=== PATIENT | female | born 1945 | race Caucasian/White ===

== ENCOUNTER 2017-12-25 13:19 | Outpatient (CLI) | payer MEDICARE ==
--- NOTE | 2017-12-25 16:10 | MRI ---
MRI CERVICAL SPINE: History: Cervical radiculopathy, R51 and N54.12 Technique: Multiplanar, multisequence noncontrast enhanced MRI images were obtained of the cervical s pine. FINDINGS: Images demonstrate the spinal cord to be unremarkable. No evidence of cord masses or lesions seen. There is loss of the normal lordotic curvature of the cervical spine. C1-2: Unremarkable. C2-3: There is a mild broad based disc bulge resulting in minimal but no significant degree of centra l stenosis. The neural foramen are patent. C3-4: There is disc desiccation. There is a broad based central disc bulge resulting in mild but not significant thecal sac compression. The neural foramen are patent. C4-5: Disc desiccation is seen. There is a broad based disc osteophyte complex centrally compressing the thecal sac resulting in a moderate degree of central spinal stenosis. There is a moderate to liz re right and mild left sided C4-5 neuroforaminal narrowing due to uncal vertebral osteophyte hypertro phy. C5-6: There is disc space height loss. There is a broad based disc osteophyte complex extending into the right C5-6 paracentral region compressing the thecal sac and the right C5-6 spinal cord deforming the cord at this level. The osteophytes extend into the right C5-6 neural foramen resulting in sever e right C5-6 neural foraminal narrowing concerning for a right C6 nerve root compression. There is a moderate left C5-6 neural foraminal narrowing due to uncal vertebral osteophyte hypertrophy. C6-7: Disc desiccation is seen. There is a broad based disc osteophyte complex centrally compressing the thecal sac resulting in mild compression for the thecal sac. There is moderate to severe bilatera l C6-7 neural foraminal narrowing due to uncal vertebral osteophyte hypertrophy. C7-T1: Unremarkable. IMPRESSION: 1. Extensive mid and lower cervical disc osteophyte complex with multilevel central and neural forami nal narrowing as above. The most significant degrees of neural foraminal narrowing involves the right C4-5, right C5-6, and right and left C6-7 neural foramen. POS: [facility]
--- NOTE | 2017-12-25 16:13 | RAD ---
CERVICAL SPINE RADIOGRAPHS COMPLETE WITH OBLIQUE FLEXION AND EXTENSION: 12/25/17 COMPARISON: Cervical spine MRI same day. FINDINGS: No acute fracture or malalignment. Mild reversal of the normal cervical lordosis and straightening of the cervical spine. Moderate degenerative disc space height loss at C5-6 and C6-7 with uncinate proc ess hypertrophy and disc osteophyte complexes. No listhesis. No significant abnormal translation with flexion or extension. IMPRESSION: No significant listhesis or translation with flexion or extension. POS: [facility]
== END 2017-12-25 13:20 | disposition home or self-care (01) ==
LOC: SCSMRI 13:19
PROVIDERS: ATTEND Anesthesiology Pain Medicine
DX: M54.12 Radiculopathy, cervical region (principal); R51 Headache; M48.02 Spinal stenosis, cervical region; M99.81 Other biomechanical lesions of cervical region; M25.78 Osteophyte, vertebrae
CPT/HCPCS: 72052; 72141

== ENCOUNTER 2019-01-15 15:15 | Outpatient (CLI) | payer MEDICARE ==
--- NOTE | 2019-01-15 16:27 | RAD ---
XR Chest Pa Lat STANDARD HISTORY: Preoperative evaluation COMPARISON: None FINDINGS: The heart size is normal. The aorta is tortuous. A calcified granuloma is seen in the left lung base The lungs are well expanded without focal areas of consolidation, pneumothorax or pleural effusions. IMPRESSION: No radiographic evidence of acute cardiopulmonary process.
[2019-01-15 16:36] LABS: #Basophils 0.1 thou/uL (0.0-0.2); #Eosinphils 0.2 thou/uL (0.0-0.7); #Lymphocytes 3.5 thou/uL (1.20-3.40); #Monocytes 0.6 thou/uL (0.11-0.59); #Neutrophils 4.2 thou/uL (1.40-6.50); %Eosinophils 2.7 % (0.0-10.0); %Lymphocytes 40.7 % (21.0-51.0); %Monocytes 7.3 % (0.0-10.0); %Neutrophils 48.3 % (42.0-75.0); Hemoglobin 12.9 g/dL (12.0-16.0); Mean Corpuscular HGB CONC 33.9 g/dL (32.0-36.0); Mean Corpuscular Hemoglobin 31.7 pg (27.0-31.0); Mean Corpuscular Volume 93.5 fL (78.0-98.0); Mean Platelet Volume 8.3 fL (7.4-10.4); Platelet Count 260 thou/uL (130-400); RBC Distribution Width 12.3 % (11.5-14.5); Red Blood Cell (RBC) Count 4.06 mill/uL (4.20-5.40); White Blood Cell (WBC) Count 8.6 thou/uL (4.8-10.8)
[2019-01-15 16:50] LABS: Anion Gap 11 mmol/L (10-20); BUN (Urea Nitrogen) 15 mg/dL (9.8-20.1); Calc. Creatinine Clearance 0 mL/min (70-130); Carbon Dioxide 30 mmol/L (23-31); Chloride 99 mmol/L (98-107); Estimated GFR-MDRD 43; Glucose 148 mg/dL (83-110); Potassium 3.7 mmol/L (3.5-5.1); Sodium 136 mmol/L (136-145)
== END 2019-01-15 15:16 | disposition home or self-care (01) ==
LOC: LABBT 15:15
PROVIDERS: ATTEND Specialist
DX: Z01.818 Encounter for other preprocedural examination (principal); C50.911 Malignant neoplasm of unspecified site of right female breast
CPT/HCPCS: 71046; 80048; 85025; 93005; 93010

== ENCOUNTER 2019-01-23 07:00 | Day surgery (SDC) | payer MEDICARE ==
[2019-01-15 15:54] VITALS: BMI 36.3
--- NOTE | 2019-01-23 08:52 | NM ---
RIGHTBREAST LYMPHOSCINTIGRAPHY: INDICATION: Malignant neoplasm of the right breast Radial pharmaceutical: 0.405 millicuries of technetium 99m filtered sulfur colloid TECHNIQUE: The rightnipple areolar complex was cleansed with alcohol. The radiotracer was injected wi thin the subcutaneous tissues surrounding the nipple areolar complex in 4 separate aliquots. The patient tolerated the injection without difficulty. FINDINGS: There is radiotracer seen surrounding the rightnipple areolar complex. There is radiotrace r accumulation within the first draining lymph node of the anterior rightaxilla. 3 separate lymph nodes are seen in the anterior right axilla on the lateral projection. IMPRESSION: Successful right breast lymphoscintigraphy.
[2019-01-23] MEDS ORDERED: Ondansetron PF 4 MG/2 ML Vial ONE (09:46)
[2019-01-23] MEDS ORDERED: PROPOFOL 200 MG/20 ML VIAL ONE (09:46)
[2019-01-23] MEDS ORDERED: Lidocaine 1% w/Epinephrine 1:100K 20 ML VIAL ONE ×2 (10:47→11:38)
[2019-01-23] MEDS ORDERED: Bupivacaine PF 0.5% 30 ML VIAL ONE (10:47)
[2019-01-23] MEDS ORDERED: Isosulfan Blue 50 MG/5 ML VIAL ONE (10:47)
[2019-01-23] MEDS ORDERED: Bupivacaine 0.25% HCL 30 ML VIAL ONE (10:48)
[2019-01-23] MEDS ORDERED: Ketorolac Tromethamine 30 MG/ML VIAL ONE (11:05)
[2019-01-23] MEDS ORDERED: PHENYLEPHRINE-NS 100 MCG/ML 10 ML SYRINGE ONE (11:17)
[2019-01-23] MEDS ORDERED: Fentanyl 100 MCG/2 ML VIAL ONE (11:32)
[2019-01-23] MEDS ORDERED: Midazolam HCl 2 mg/2 ml Vial ONE (11:32)
--- NOTE | 2019-01-24 12:50 | OP ---
DATE OF PROCEDURE: 01/23/2019 PREOPERATIVE DIAGNOSIS: Right breast cancer. POSTOPERATIVE DIAGNOSIS: Right breast cancer. PROCEDURES PERFORMED: Right sentinel lymph node mapping, right axillary sentinel lymph node biopsy (2 lymph nodes removed), right breast ultrasound-guided needle localization, right breast needle localized lumpectomy. ANESTHESIA: General endotracheal. INDICATIONS: The patient is a 73-year-old white female. She has biopsy-proven right breast cancer approximately at the 7 o'clock radian of the right breast. After discussing options with her, she has elected to proceed with breast conservation surgery and presents for lumpectomy and sentinel lymph node biopsy. DESCRIPTION OF PROCEDURE: Informed consent was obtained. The patient was taken to the operating room, where general endotracheal anesthesia was obtained with the patient in supine position. The right breast was infiltrated with 3 mL of Lymphazurin in the periareolar subdermal lymphatics and this area was massaged for 5 minutes. The right breast and axilla were prepped with ChloraPrep and draped in sterile fashion. Attention was turned first to the axilla. A transverse low axillary incision was created and dissection carried through skin and subcutaneous tissue. Neoprobe was used to identify areas of maximum radio intensity. I was able to identify 2 separate lymph nodes that were heavily radioactive. Each of these also had blue dye and blue lymphatics entering them. These were each dissected circumferentially and all lymphatics were divided between clamps and 2-0 silk tie. After removing these 2 lymph nodes, one of which had a count over 1000 and the other one had counts of over 300. There were no other areas of radioactivity within the axilla that exceeded 20. I did not see any other blue lymphatics were palpable. The area was irrigated with saline. Meticulous hemostasis was assured. The wound was closed in layers with 3-0 and 4-0 Monocryl. An additional local anesthetic was infiltrated during closure. Attention was then turned to the breast. Ultrasound was utilized to identify the area of the malignancy at about the 7 even o'clock radian of the right breast in the lower outer quadrant. The location of the malignancy was marked in a grid-type fashion on the skin. A localizing needle was then placed in a superior to inferior fashion through the malignancy. A radial incision was then created encompassing the localizing needle. Dissection was carried through skin and subcutaneous tissue. Flaps were raised laterally and medially and behind the needle in a superior fashion. A wide core of tissue was then obtained extending inferiorly around the needle and just about down to the pectoral fascia. This specimen was removed intact. It was tagged for orientation with sutures and submitted for specimen mammography. This revealed the biopsy clip and the malignancy be present within the specimen. The wound was inspected and there was found to be no other area of visible or palpable abnormality. Meticulous hemostasis was obtained. The wound was closed in layers with 3-0 and 4-0 Monocryl. An additional local anesthetic was infiltrated during closure. Dermabond was placed external to both incisions. There were no complications. Blood loss was negligible. The patient tolerated the procedure well and was taken to recovery room in stable condition. Job ID: [id number]
== END 2019-01-23 15:25 | disposition home or self-care (01) ==
LOC: SDC 07:00
PROVIDERS: ATTEND Specialist
PROC: 0HBT0ZZ Excision of Right Breast, Open Approach (ICD-10-PCS; principal; 2019-01-23)
PROC: 07B50ZX Excision of Right Axillary Lymphatic, Open Approach, Diagnostic (ICD-10-PCS; 2019-01-23)
DX: C50.511 Malignant neoplasm of lower-outer quadrant of right female breast (principal); E11.9 Type 2 diabetes mellitus without complications; E78.5 Hyperlipidemia, unspecified; I10 Essential (primary) hypertension; K21.9 Gastro-esophageal reflux disease without esophagitis; Z17.0 Estrogen receptor positive status [ER+]; Z79.84 Long term (current) use of oral hypoglycemic drugs; Z79.899 Other long term (current) drug therapy; Z88.1 Allergy status to other antibiotic agents; Z88.6 Allergy status to analgesic agent; Z91.048 Other nonmedicinal substance allergy status
CPT/HCPCS: 19301; 38525; 76098; 78195; A9541; Q9968; 88307; 88342; J0131; J0690; J1885; J2250; J2405; J2704; J3010; S0020

== ENCOUNTER 2019-10-01 09:58 | Inpatient (IN) | payer MEDICARE ==
[2019-10-01] MEDS ORDERED: Acetaminophen 650 MG Suppository PR PRN (12:07)
[2019-10-01] MEDS ORDERED: Ondansetron PF 4 MG/2 ML Vial IVP PRN (12:07)
[2019-10-01] MEDS ORDERED: Acetaminophen 325 MG TAB PO PRN (12:07)
[2019-10-01] MEDS ORDERED: Ondansetron ODT 4 MG TAB PO PRN (12:07)
[2019-10-01] MEDS ORDERED: Dextrose 50% Abboject 50 ML SYRINGE SLOW IVP PRN (15:40)
[2019-10-01] MEDS ORDERED: HumaLOG 300 UNITS/3 ML VIAL SC PRN ×2 (15:40)
[2019-10-01] MEDS ORDERED: Dextrose 5% in Water 1,000 ML IV PRN (15:40)
--- NOTE | 2019-10-01 15:41 | PDOC.FPRHP ---
- History of Present Illness Chief Complaint: syncope History of Present Illness: This is a 73yo F who is a transfer from [facility] - she was admitted on 09/29 for syncope 2/2 severe . The patient was walking to a friends house on 09/28 when she became overheated, lightheaded and had 2 episodes of vomiting enroute. Once she got to the house she had a syncopal episode of unknown duration. When she woke up she had no chest pain, SOB, was not confused or weak. The patient was admitted to telemetry for further work up. She was found to have severe on echo. On evaluation here, the patient was resting comfortably in bed. She reports she had her cath done this morning and it went well. She denies any chest pain, palpitations, NVD, recurrent syncope. She does endorse some anxiety and desire to "get the procedure over with." ED Course: transferred from [facility] - see HPI - Allergies/Adverse Reactions Allergies Allergy/AdvReac Type Severity Reaction Status Date / Time adhesive Allergy Verified 10/01/19 13:36 carisoprodol [From Soma] Allergy Verified 10/01/19 13:36 levofloxacin [From Levaquin] Allergy Verified 10/01/19 13:36 - Home Medications Medication Instructions Recorded Confirmed Type Calcium Carbonate/Vitamin D3 1 tab PO BID 01/15/19 10/01/19 History [Calcium 600 + Vitamin D] Lisinopril/Hydrochlorothiazide 1 tab PO DAILY 01/15/19 10/01/19 History [Lisinopril-Hctz 20-25 mg Tab] Multivitamin [Multivitamins] 1 cap PO DAILY 01/15/19 10/01/19 History Simvastatin [Zocor] 1 tab PO HS 01/15/19 10/01/19 History metFORMIN HCl [Metformin HCl] 0.5 tab PO HS 01/15/19 10/01/19 History Anastrozole 1 tab PO HS 10/01/19 10/01/19 History Aspirin 1 tab PO DAILY 10/01/19 10/01/19 History Inulin [Fiber Gummies] 2 tab PO DAILY 10/01/19 10/01/19 History - History PMH: DM2, HTN, GERD, R breast cancer s/p surgery in Jan 2019 with axilllary node dissection and post radiation; , HLD PSH: cholecystectomy, appendectomy, right total knee arthroplast, tonsillectomy , b/l tubal ligation, cataract surgery, foot/ankle surgery FH: Father - of HF at age 76, Mother - of stroke age 74, AL at age 44 Social hx: lives in [place], no hx of tobacco, alcohol or drug use - Review of Systems General: denies: fever/chills, weight/appetite/sleep changes, night sweats, fatigue Eyes: denies: vision changes ENT: denies: nasal congestion, rhinorrhea Respiratory: denies: cough, congestion, shortness of breath Cardiovascular: denies: chest pain, palpitation, edema Gastrointestinal: denies: nausea, vomiting, diarrhea, constipation, abdominal pain Genitourinary: denies: dysuria Musculoskeletal: denies: pain, tenderness, swelling Neurological: denies: syncope, weakness Psychological: reports: anxiety - Vital signs 97.1F, HR 79, RR 18, BP 108.66, 98% RA, 94kg - Physical Exam Constitutional: NAD, awake, alert and oriented, well developed HEENT: normocephalic and atraumatic, PERRLA, EOMI, no scleral icterus, grossly normal vision, grossly normal hearing, MMM Neck: supple, FROM, trachea midline Chest: no-tender to palpation, no lesions -Heart: systolic murmur heard of the right sternal border radiating to the L; no PMI Lungs: CTAB, no respiratory distress, good air movement, no rales/rhonchi, no wheezing Abdomen: soft Musculoskeletal: normal structure, normal tone, ROM grossly normal Neurological: no focal deficit Skin: no rash/lesions, good turgor, capillary refill <2 seconds Heme/Lymphatic: no unusual bruising or bleeding Psychiatric: normal mood and affect (mildly anxious on exam) FMR H&P: A/P - Plan Syncope 2/2 Severe aortic stenosis s/p Echo showing: EF 55-60%, LVH, mildly dilated LA, severe - mean gradient across the valve of 44mmHg and valve area 0.8cm2. Seen on cath as well. EKG showing LBBB. - Trop max 0.100 - CV surg consulted here. Plan for CABG. 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 - Plan for single vessel bypass with Dr. Belcher. CV surg consulted, appreciate recs. - hold ASA for CABG and low dose BB SANNA Bun/Cr: 1.14 - Cr downtrending, will continue to monitor. PO hydrate. HTN - Controlled on ACEI, continue to monitor - PRNs available HLD LDL 59, Total 150, TG 209. ASCVD 36.5%. - Continue atorvastatin 40mg qHS DM2 A1c 5.9 in 12/2018 - SS, continue home meds. - A1c pending Of note - COVID neg on 09/29. Code: FULL PPx: holding for CABG PCP: Nora Dispo: admit to tele, inpatient. Clinical course pending surgery with CV surg- Dr. Taylor. Case discussed with Dr. Osborn
[2019-10-01] MEDS ORDERED: hydrALAZINE 20 MG/ML VIAL SLOW IVP PRN (15:43)
[2019-10-01] MEDS ORDERED: Diazepam 5 MG TAB PO PRN (17:34)
[2019-10-01] MEDS ORDERED: Communication Order-Pharmacy FS SCH (17:34)
[2019-10-01] MEDS ORDERED: Nitroglycerin 0.4 MG TAB (25 Tab Bottle) SL PRN (18:14)
--- NOTE | 2019-10-01 19:16 | ULT ---
BILATERAL CAROTID DUPLEX ULTRASOUND: HISTORY: Carotid bruit TECHNIQUE: Grayscale, color-flow and spectral Doppler ultrasound imaging of the extracranial carotid artery syst ems and vertebral arteries was performed bilaterally. FINDINGS: No large amount of echogenic plaque is seen involving the common carotid or internal carotid arteries . Small focus of calcified and noncalcified plaque in the right carotid bifurcation/proximal right carotid artery. The peak systolic velocity in the right ICA measures 59.2 cm/s. The peak systolic velocity in the ri ght CCA measures 90.6 cm/s. The peak systolic velocity in the left ICA measures 73.3 cm/s. The peak systolic velocity in the l eft CCA measures 68.4 cm/s. The right IC/CC ration is0.7. The left IC/CC ratio is 1.1. Vertebral flow: antegrade, bilaterally. . IMPRESSION: No sonographic evidence of hemodynamically significant stenosis in either carotid artery
--- NOTE | 2019-10-01 21:54 | CON ---
DATE OF CONSULTATION: HISTORY OF PRESENT ILLNESS: Ms. Valenzuela is a 73-year-old woman, who was transferred from the [facility] today. She presented on 08/29 with history of syncope while walking to her niece's house. Her niece found her passed out on the porch of her house. There were reports of attempted resuscitation, but the patient eventually woke up and ambulance was called to transport her to the hospital. Since being at the [facility], she has had an echocardiogram performed, which showed an ejection fraction of 55% to 60%. Her peak aortic velocity was 419 with a [id number]-[id number]-[id number] ratio of 70 and a mean of 44, aortic valve area 0.8. Cardiac catheterization performed today shows a normal left system. 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 The patient has no known history of coronary artery disease or aortic stenosis. She has never had syncope before this. She has no history of arrhythmia or congestive heart failure. Currently, she is resting comfortably post catheterization via right radial artery without complaint. PAST MEDICAL HISTORY: 1. Type 2 diabetes mellitus. 2. Hypertension. 3. Dyslipidemia. 4. GERD. 5. History of right breast cancer, status post lumpectomy, sentinel node dissection, and right chest wall radiation. PAST SURGICAL HISTORY: 1. Cholecystectomy. 2. Appendectomy. 3. Right total knee replacement. 4. Left total ankle replacement. 5. Tonsillectomy. 6. BTL. 7. Right breast lumpectomy with axillary sentinel node dissection. SOCIAL HISTORY: She lives in [place]. She does not use alcohol, tobacco, or other drugs. REVIEW OF SYSTEMS: A 10-point review of systems is performed and is negative except as above. PHYSICAL EXAMINATION: GENERAL: This is a well-developed, well-nourished, moderately obese woman, resting comfortably on the telemetry floor. VITAL SIGNS: Her height is 5 feet and 2 inches, weight is 208 pounds, BSA is 2.03. Temperature is 98.4, pulse is 98 and regular, and blood pressure is 140/64. EKG shows a narrow complex QRS with sinus rhythm. HEENT: Sclerae are nonicteric. Pupils are equal and round bilaterally. Dentition is good. NECK: Supple with no adenopathy. She has bilateral carotid bruits. CHEST: Clear bilaterally. HEART: Rhythm is regular. There is a harsh systolic ejection murmur heard throughout the precordium. ABDOMEN: Obese, soft, and nontender. There are no masses. EXTREMITIES: There is no edema. She has palpable carotid, radial, and femoral pulses bilaterally. Dorsalis pedis and posterior tibial pulses are dopplerable bilaterally. VENOUS: She has no venous varicosities or venous stasis change. She has no history of venous ablation. LABORATORY DATA: Of note, her hemoglobin is 11.7, platelet count is 237,000. Potassium is 3.6, creatinine is 1.14. PT/INR is 1.0. Hemoglobin A1c is pending. Chest x-ray shows a tortuous course of the intrathoracic aorta and no dominant lung mass. ASSESSMENT AND PLAN: This is a very pleasant 73-year-old woman, who has severe aortic stenosis and single-vessel coronary artery disease. I discussed bypass to her distal right coronary artery with a vein graft and aortic valve replacement with bioprosthetic valve. Risks, benefits, and options have been outlined with she and her son. There was some confusion over bypass followed by TAVR in [place]. This really does not make good medical as we will have her in the OR with her chest opened and in a situation where aortic valve replacement at that setting would be certainly more prudent than waiting for a TAVR down the road. Plan is for surgery on Sunday. Job ID: [id number]
[2019-10-01] MEDS: Atorvastatin Calcium 40 MG TAB PO SCH (22:05)
--- NOTE | 2019-10-01 22:13 | HP ---
I have examined the patient and discussed the case with Dr. Bessy Caldera. HISTORY OF PRESENT ILLNESS: Briefly, Ms. Valenzuela is a pleasant white female patient, admitted ostensibly for syncope. She states that over the last month or so, she has noticed increased breathlessness particularly with exertion. She has been attributing this to the heat, which has been excessive even by [place] standards. On September 28, while visiting relatives, she had a syncopal episode, which precipitated an ambulance ride to the [facility]. She was noted there to have a heart murmur and subsequent workup revealed coronary artery disease and critical aortic stenosis. She has been transferred here for cardiovascular services. She has an at least 10 year history of type 2 diabetes. She also has a history of hypertension, breast cancer, and hyperlipidemia. PHYSICAL EXAMINATION: GENERAL: She is awake, alert, oriented, pleasant, in no distress. She is not having any breathlessness or chest discomfort at this time. VITAL SIGNS: Stable. EAR, NOSE, AND THROAT: Moist mucous membranes. No erythema or exudate. NECK: Supple. CARDIAC: Heart rhythm is regular. There is an S4 gallop. She has a grade 3 to 4/6 systolic murmur with some radiation to the neck. LUNGS: Clear without rales or wheezes. ABDOMEN: Obese, but flat, soft. No guarding, rebound, or rigidity. EXTREMITIES: No edema. NEUROLOGIC: No focal deficits. LABORATORY DATA: Pending. EKG shows a left bundle-branch block. ASSESSMENT: 1. Critical aortic stenosis. 2. Coronary artery disease. 3. Type 2 diabetes. 4. Hypertension. 5. Hyperlipidemia. PLAN: We will follow the patient for her medical issues along with the cardiovascular surgeon. It is anticipated she will have bypass surgery here at [facility] probably tomorrow with later transfer to another facility for aortic valve replacement. Job ID: [id number]
[2019-10-02 04:27] LABS: Anion Gap 12 mmol/L (10-20); BUN (Urea Nitrogen) 14 mg/dL (9.8-20.1); Calc. Creatinine Clearance 75 mL/min (70-130); Calcium 8.5 mg/dL (7.8-10.44); Carbon Dioxide 22 mmol/L (23-31); Chloride 105 mmol/L (98-107); Estimated GFR-MDRD 55; Glucose 96 mg/dL (83-110); Potassium 3.8 mmol/L (3.5-5.1); Sodium 135 mmol/L (136-145)
[2019-10-02 04:31] LABS: Eosinophils 2 % (0-10); Hemoglobin 11.4 g/dL (12.0-16.0); Lymphocytes 38 % (21-51); MDiff Complete? YES; Mean Corpuscular HGB CONC 33.3 g/dL (32.0-36.0); Mean Corpuscular Hemoglobin 31.6 pg (27.0-31.0); Mean Corpuscular Volume 94.8 fL (78.0-98.0); Mean Platelet Volume 9.1 fL (7.4-10.4); Monocytes 4 % (0-10); Neutrophil 56 % (42-75); Platelet Count 198 thou/uL (130-400); Platelet Morphology Comment Appears Adequate; RBC Distribution Width 12.6 % (11.5-14.5); Red Blood Cell (RBC) Count 3.63 mill/uL (4.20-5.40); White Blood Cell (WBC) Count 7.8 thou/uL (4.8-10.8)
--- NOTE | 2019-10-02 06:08 | PDOC.FM ---
- Subjective Subjective: Patient complains of a headache related to the bright overhead lights. She denies lightheadedness and dizziness, both when sitting and when changing positions. She denies chest pain, SOB, abdominal pain and edema. - Objective MAR Reviewed: Yes Vital Signs & Weight: Vital Signs (12 hours) Temp Pulse Resp BP Pulse Ox 10/02/19 04:15 98.1 F 77 20 112/56 L 98 10/01/19 21:52 98.0 F 82 18 127/61 96 Weight Weight 94.211 kg I&O: 09/30/19 10/01/19 10/02/19 06:59 06:59 06:59 Intake Total 118 Balance 118 Result Diagrams: 10/02/19 03:23 10/02/19 03:23 Phys Exam - Physical Examination Constitutional: NAD HEENT: moist MMs, sclera anicteric Neck: supple, full ROM Respiratory: no wheezing, clear to auscultation bilateral Cardiovascular: RRR Systolic ejection murmur with rads to carotids bilaterally Gastrointestinal: soft, positive bowel sounds Musculoskeletal: no edema, pulses present Neurological: non-focal, moves all 4 limbs Lymphatic: no nodes Psychiatric: normal affect, A&O x 3 Skin: no rash, normal turgor Dx/Plan - Plan Plan: Syncope 2/2 Severe aortic stenosis s/p Echo showing: EF 55-60%, LVH, mildly dilated LA, severe - mean gradient across the valve of 44mmHg and valve area 0.8cm2. Seen on cath as well. EKG showing LBBB. Trop max 0.100 - CV surg consulted. 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 - Plan per above - hold ASA for surgery and low dose BB SANNA Bun/Cr: 1.14. Creatinine improved to 0.99. - Cr downtrending, will continue to monitor. - PO hydrate. HTN - Controlled on ACEI, continue to monitor - PRNs available HLD LDL 59, Total 150, TG 209. ASCVD 36.5%. - Continue atorvastatin 40mg qHS DM2 A1c 6.0. - SS, continue home meds. Of note - COVID neg on 09/29. Code: FULL PPx: holding for surgery PCP: Nora Dispo: Clinical course pending surgery with CV surgeon, Dr. Taylor.
[2019-10-02] MEDS: metFORMIN 500 MG TAB PO SCH ×2 (08:46→17:42)
[2019-10-02] MEDS ORDERED: Enoxaparin Sodium 40 MG/0.4 ML SYRINGE SC SCH (09:00)
--- NOTE | 2019-10-02 11:51 | CT ---
CT angiogram chest with contrast: 10/02/2019 HISTORY: 73-year-old female with aortic valve disease. This is a preprocedural study prior to aortic valve replacement surgery tomorrow. TECHNIQUE: IV injection of 60 mL Isovue-370. Arterial bolus chasing technique scan through the chest. Coronal and sagittal 3-D MIP reconstructions. FINDINGS: IV contrast bolus timing was optimized for the aorta, and not the pulmonary arteries. Therefore, this study does not evaluate for pulmonary embolism. There is certainly no saddle embolus in the pulmonic trunk or clot in the left and right main pulmonary arteries. There are branches cannot be evaluated. Multiple nonspecific mildly enlarged bilateral hilar lymph nodes and scattered minimally enlarged med iastinal lymph nodes. No thoracic aortic dissection or aneurysm. Trachea and major bronchi are patent and clear. Diffuse interstitial haziness throughout both lungs, including patchy mosaic type pattern of groundgl ass densities throughout bilateral lower lobes, nonspecific. No pleural effusion or pneumothorax. Calcific densities consistent with at least mild atherosclerotic plaque, at ascending aorta, includin g at aortic valve annulus, and aortic arch, as well as descending thoracic aorta. Calcification of mitral valve annulus. Calcific densities at LAD, left main, LCx, and probably RCA, representing atherosclerotic calcificati on and or coronary stents. IMPRESSION: 1. Coronary atherosclerosis due to calcified coronary lesion ICD-10: I 25.84 2. At least mild atherosclerosis of thoracic aorta. 3. Groundglass changes throughout the bilateral lower lobes, nonspecific.
--- NOTE | 2019-10-02 12:45 | PRG ---
DATE OF SERVICE: 10/02/2019 Ms. Valenzuela is resting quietly in bed and is in good spirits. She was seen in consultation late yesterday by Dr. Taylor. She is to have bypass of her right coronary artery and aortic valve replacement tomorrow. We will continue to follow with the CV team. Job ID: [id number]
[2019-10-02] MEDS ORDERED: Prevnar 13-Val Conj/PF 0.5 ML SYRINGE IM ONE (14:45)
[2019-10-02] MEDS: Atorvastatin Calcium 40 MG TAB PO SCH (20:27)
[2019-10-02] MEDS ORDERED: Calcium Carbonate 500 MG ChewTAB PO PRN (21:18)
[2019-10-03] MEDS ORDERED: Vancomycin 1.5 GRAM/300 ML BAG 1.5 GM in Premix Bag 1 BAG IVPB SCH (06:00)
--- NOTE | 2019-10-03 06:07 | PDOC.FM ---
- Subjective Subjective: Patient was gone from room for surgery this am when attempting to round. - Objective MAR Reviewed: Yes Vital Signs & Weight: Vital Signs (12 hours) Temp Pulse Resp BP Pulse Ox 10/03/19 03:28 97.7 F 87 16 147/67 H 98 10/03/19 00:00 107 H 10/02/19 19:42 97.8 F 97 16 137/65 98 Weight Weight 93.621 kg I&O: 10/01/19 10/02/19 10/03/19 06:59 06:59 06:59 Intake Total 118 1600 Balance 118 1600 Result Diagrams: 10/02/19 03:23 10/02/19 03:23 Dx/Plan - Plan Plan: Syncope 2/2 Severe aortic stenosis s/p Echo showing: EF 55-60%, LVH, mildly dilated LA, severe - mean gradient across the valve of 44mmHg and valve area 0.8cm2. Seen on cath as well. EKG showing LBBB. Trop max 0.100. - CV surg consulted. 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 - Plan per above - hold ASA for surgery and low dose BB SANNA, improved Bun/Cr: 1.14. Creatinine improved to 0.99. -Monitor HTN - Controlled on ACEI, continue to monitor - PRNs available HLD LDL 59, Total 150, TG 209. ASCVD 36.5%. -Atorvastatin 40mg qHS DM2 A1c 6.0. - Hold SS, home meds for surgery Of note - COVID neg on 09/29. Code: FULL PPx: holding for surgery PCP: Nora Dispo: Clinical course pending surgery with CV surgeon, Dr. Taylor.
[2019-10-03] MEDS ORDERED: Albumin 5% 500 ML ONE (06:28)
[2019-10-03] MEDS ORDERED: Bupivacaine PF 0.5% 30 ML VIAL ONE (06:28)
[2019-10-03] MEDS ORDERED: EPINEPHrine 1 MG/ML AMP ONE (06:28)
[2019-10-03] MEDS ORDERED: Fentanyl 250 MCG/5 ML VIAL ONE (06:44)
[2019-10-03] MEDS ORDERED: Midazolam HCl 5 mg/5 ml Vial ONE (06:44)
[2019-10-03] MEDS ORDERED: Dexmedetomidine 200 MCG/2 ML VIAL ONE (06:45)
[2019-10-03] MEDS ORDERED: Heparin 10,000 UNITS/1 ML VIAL 30,000 UNITS in Sodium Chloride 0.9% 1,000 ML FS SCH (06:45)
[2019-10-03] MEDS ORDERED: Midazolam HCl 2 mg/2 ml Vial ONE (07:13)
[2019-10-03] MEDS ORDERED: CEFAZOLIN 2 GM in Premix Bag 1 BAG IVPB SCH (07:30)
[2019-10-03] MEDS ORDERED: Insulin Regular 300 UNITS/3 ML VIAL ONE (08:43)
[2019-10-03] MEDS ORDERED: Lidocaine 1% PF 5 ML VIAL ONE (08:50)
[2019-10-03] MEDS ORDERED: Vecuronium 10 MG VIAL ONE (08:50)
[2019-10-03] MEDS ORDERED: Thrombin 5000 UNITS/5 ML VIAL ONE (08:50)
[2019-10-03] MEDS ORDERED: Cardioplegic Soln 1,000 ML BAG ONE (08:50)
[2019-10-03] MEDS ORDERED: Ondansetron PF 4 MG/2 ML Vial ONE (08:50)
[2019-10-03] MEDS ORDERED: Norepinephrine 4 MG/4 ML VIAL ONE (08:50)
[2019-10-03] MEDS ORDERED: Heparin 5,000 UNITS/ML VIAL ONE (08:50)
[2019-10-03] MEDS ORDERED: Nitroglycerin 50 MG/250 ML BOT ONE (08:50)
[2019-10-03] MEDS ORDERED: Dexamethasone 20 MG/5 ML VIAL ONE (08:50)
[2019-10-03] MEDS ORDERED: Potassium Chloride 60 MEQ/30 ML VIAL ONE (08:50)
[2019-10-03] MEDS ORDERED: Magnesium Sulfate 1 GM/2 ML VIAL ONE (08:50)
[2019-10-03] MEDS ORDERED: Lidocaine 2% PF 5 ML VIAL ONE (08:50)
[2019-10-03] MEDS ORDERED: Heparin 30,000 units/30 ml VIAL ONE (08:50)
[2019-10-03] MEDS ORDERED: PROPOFOL 200 MG/20 ML VIAL ONE (08:50)
[2019-10-03] MEDS ORDERED: Protamine Sulfate 250 MG/25 ML VIAL ONE (08:50)
[2019-10-03] MEDS ORDERED: Papaverine 60 MG/2 ML VIAL ONE (08:50)
[2019-10-03] MEDS ORDERED: Aminocaproic Acid 5 GM/20 ML VIAL ONE (08:50)
[2019-10-03] MEDS ORDERED: Ketorolac Tromethamine 30 MG/ML VIAL ONE (08:50)
[2019-10-03] MEDS ORDERED: Sodium Bicarb 50 MEQ/50 ML Abboject 8.4% SYRINGE ONE (08:50)
[2019-10-03] MEDS ORDERED: Calcium Chloride 1 GM/10 ML Abboject SYRINGE ONE (08:50)
[2019-10-03] MEDS ORDERED: Glycopyrrolate 0.2 MG/ML 5 ML SYRINGE ONE (08:50)
[2019-10-03] MEDS ORDERED: D5 1/2 NS w/20 mEq KCL 1,000 ML ONE (10:29)
[2019-10-03 11:45] LABS: Actual Bicarbonate (HCO3a) 22.6 mEq/L (22-28); Base Excess (BEa) -3.9 mEq/L (-2.0 to +3.0); CO2 Tension 46.7 mmHg (35.0-45.0); Calcium, Ionized (arterial) 0.95 mmol/L (1.12-1.30); Carboxyhemoglobin (COHb) 0.3 gm% (0.0-3.0); Hemoglobin (Hb) 11.6 g/dL (12.0-16.0); O2 Tension (PaO2), arterial 102.7 mmHg (> 70.0); Potassium - ABG Lab 3.62 mmol/L (3.70-5.30)
[2019-10-03 11:46] LABS: ALV-art Gradient 266.725 (0-20); Puncture Site A-LINE
[2019-10-03] MEDS ORDERED: Bisacodyl 10 MG SUPP PR PRN (11:50)
[2019-10-03] MEDS ORDERED: Morphine 2 MG/ML VIAL SLOW IVP PRN (11:50)
[2019-10-03] MEDS ORDERED: Mag-Al 1200 mg/1200 mg/30 ML UDCUP PO PRN (11:50)
[2019-10-03] MEDS ORDERED: traMADol HCl 50 MG TAB PO PRN (11:50)
[2019-10-03] MEDS ORDERED: Guaifenesin DM 100-10/5 ML UDCUP PO PRN (11:50)
[2019-10-03] MEDS ORDERED: Nitroglycerin 50 MG/250 ML BOT 250 ML IVPB PRN (11:50)
[2019-10-03] MEDS ORDERED: Acetaminophen 325 MG TAB PO PRN (11:50)
[2019-10-03] MEDS ORDERED: Promethazine HCl 25 MG/ML VIAL IM PRN (11:50)
[2019-10-03] MEDS ORDERED: Ondansetron PF 4 MG/2 ML Vial IVP PRN (11:50)
[2019-10-03] MEDS ORDERED: Fentanyl 100 MCG/2 ML VIAL SLOW IVP PRN (11:50)
[2019-10-03] MEDS ORDERED: hydrALAZINE 20 MG/ML VIAL SLOW IVP PRN (11:50)
[2019-10-03] MEDS ORDERED: Norepinephrine 8 MG/0.9% NS 250 ML IVPB PRN (11:50)
[2019-10-03] MEDS ORDERED: Magnesium 2 GM/50 ML 2 GM in Premix Bag 1 BAG IVPB SCH (11:50)
[2019-10-03] MEDS ORDERED: Post-Op Insulin Drip Protocol IVPB ONE (11:50)
[2019-10-03] MEDS ORDERED: Hetastarch 6% 500 ML 500 ML IVPB PRN (11:50)
--- NOTE | 2019-10-03 11:57 | RAD ---
Exam: Chest one view HISTORY:Status post open heart surgery Comparison: 09/29/2019 FINDINGS: Lines and tubes: Right-sided subclavian vascular catheter is oriented cephalad direction. Distal tip is not included. Sternotomy wires and mediastinal drainage catheter are identified. Prosthetic aortic valve. Cardiac silhouette:Upper normal cardiac silhouette. Stable calcification of the mitral annulus. Aorta: Stable atherosclerosis of the aorta Pulmonary vessels: Normal Costophrenic angles: Clear LUNGS: Patchy interstitial and alveolar opacities likely representing atelectasis. Pneumothorax: None Osseous abnormalities: None IMPRESSION: Findings compatible with recent open heart surgery
[2019-10-03] MEDS ORDERED: Insulin Regular 300 UNITS/3 ML VIAL SC PRN (12:00)
[2019-10-03] MEDS ORDERED: Dextrose 5% in Water 1,000 ML IV PRN (12:00)
[2019-10-03] MEDS ORDERED: HUMULIN R 100 UNITS in Sodium Chloride 0.9% 100 ML IVPB SCH (12:00)
[2019-10-03] MEDS ORDERED: Dextrose 50% Abboject 50 ML SYRINGE SLOW IVP PRN (12:00)
[2019-10-03 12:09] LABS: INR-International Normal Ratio 1.4; PTT 39.4 sec (22.9-36.1); Prothrombin Time 17.4 sec (12.0-14.7)
[2019-10-03 12:11] LABS: Hemoglobin 10.8 g/dL (12.0-16.0); Mean Corpuscular Hemoglobin 32.3 pg (27.0-31.0); Mean Platelet Volume 8.8 fL (7.4-10.4); Platelet Count 168 thou/uL (130-400); RBC Distribution Width 12.8 % (11.5-14.5); Red Blood Cell (RBC) Count 3.34 mill/uL (4.20-5.40); White Blood Cell (WBC) Count 28.7 thou/uL (4.8-10.8)
[2019-10-03] MEDS: Ketorolac Tromethamine 30 MG/ML VIAL IVP SCH ×3 (12:11→23:28)
[2019-10-03] MEDS: D5 1/2 NS w/20 mEq KCL 1,000 ML IV SCH (12:11)
[2019-10-03 12:18] LABS: Anion Gap 11 mmol/L (10-20); BUN (Urea Nitrogen) 10 mg/dL (9.8-20.1); Calc. Creatinine Clearance 84 mL/min (70-130); Calcium 6.5 mg/dL (7.8-10.44); Carbon Dioxide 23 mmol/L (23-31); Chloride 109 mmol/L (98-107); Estimated GFR-MDRD 63; Glucose 134 mg/dL (83-110); Potassium 3.6 mmol/L (3.5-5.1); Sodium 139 mmol/L (136-145)
[2019-10-03 12:26] LABS: Band 12 % (5-11); Lymphocytes 14 % (21-51); MDiff Complete? YES; Metamyelocyte 1 % (0-0); Monocytes 6 % (0-10); Neutrophil 67 % (42-75); Platelet Morphology Comment Appears Adequate; RBC Morphology Normal
[2019-10-03] MEDS: Potassium Chloride 20 MEQ/100 ML PREMIX BAG IVPB PRN (12:40)
--- NOTE | 2019-10-03 13:22 | OP ---
DATE OF PROCEDURE: 10/03/2019 PREOPERATIVE DIAGNOSES: Aortic stenosis/coronary artery disease/hypertension/dyslipidemia/diabetes mellitus/obesity. POSTOPERATIVE DIAGNOSES: Aortic stenosis/coronary artery disease/hypertension/dyslipidemia/diabetes mellitus/obesity. PROCEDURES PERFORMED: 1. Aortic valve replacement #19 INSPIRIS bioprosthetic valve. 2. Coronary artery bypass grafting x1-reverse saphenous vein to PDA. SURGEON: Joby Taylor MD DATA CENTER CONSULTANT: Dr. Baldo Coleman. ANESTHESIA: General endotracheal, Dr. Amish Santana. PUMP TIME: 101 minutes. CROSSCLAMP TIME: 73 minutes. LOW-CORE TEMPERATURE: 35 degrees Celsius. CIRCUIT BOARD ASSEMBLER: Jeremiah Guthrie. DRAINS: 24-Vietnamese chest tubes x2. DRIPS: Levophed. TRANSFUSIONS: None. DESCRIPTION OF PROCEDURE: After consent was obtained, the patient was brought to the operating room and placed in supine position on the operating room table. Appropriate central line and monitors were placed, and general endotracheal anesthesia was induced. Chest, abdomen, and legs were prepped and draped in usual sterile fashion. Greater saphenous vein was harvested from the right lower extremity utilizing skip incisions. This was harvested from the ankle. Wounds were irrigated and closed in layers. Median sternotomy was performed. Thymic fat and pericardium were divided with electrocautery. The patient was systemically heparinized. Aortic and atrial cannulation were performed. After adequate heparinization, retrograde prime was performed and the patient was placed on cardiopulmonary bypass. Distal target was marked. A left ventricular sump drain was placed through the right superior pulmonary vein. A 19-Vietnamese Librado drain was placed within the pericardium, and carbon dioxide was infused. Aortic cross-clamp was applied, and antegrade sanguineous cardioplegic arrest was obtained. 1 L of antegrade cold [place] cardioplegia was given. Topical cold solution was used. Reverse saphenous vein was anastomosed to the PDA in an end-to-side fashion with running 7-0 Prolene suture. Anastomosis was tested and was hemostatic. Transverse hockey-stick aortotomy was performed. The valve was inspected. It was a three leaflet valve that was heavily calcified. Annulus was small. The valve leaflets were debrided, and the annulus was decalcified. Valve measured at 19. There was calcium at the origin of the left main, which was debrided after it started to elevate. There was also another area of calcification within the aortic wall itself that was debrided. Pledgeted 2-0 Ethibond sutures were placed in the annulus and then passed through the sewing ring of the valve. The valve was seated and secured with Cor-Knots. Valve was seated nicely with good apposition. Left main was inspected again. There was no further calcium or debris within the orifice. Aortotomy was closed with pledgeted 4-0 prolene suture in two layers. Bioglue was placed in the suture line. The punch site was created in the aorta. Saphenous vein was anastomosed to the aortic punch site with a running 6-0 Prolene suture. De-airing maneuvers were performed. CO2 infusion was terminated. The aortic cross-clamp was removed with the patient in Trendelenburg position. The root and sump drains were allowed to continue draining for approximately 5 minutes. The sump drain was removed and its pursestring suture secured. A root vent was removed and its pursestring suture secured. The patient was warmed and weaned from cardiopulmonary bypass. Atrial and ventricular pacing wires were placed. After resumption of sinus rhythm, good hemodynamics, temperature greater than 36.5, bypass was discontinued. Transfusions were given. Protamine was administered. A 24-Vietnamese chest tubes were placed in mediastinum along with a 19-Vietnamese drain. Vancomycin paste was placed on the sternal edges. After adequate hemostasis had been obtained, sternum was closed with #7 wire. Sternum was treated with platelet-rich plasma, wires twisted and buried. Wounds were irrigated and treated with platelet-poor plasma and closed in multiple layers. Peristernal block was performed with 0.5% Marcaine mixed with Decadron. The patient tolerated the procedure well, was transferred to the intensive care in stable, but critical condition. Job ID: [id number]
--- NOTE | 2019-10-03 15:19 | PRG ---
DATE OF SERVICE: 10/03/2019 SUBJECTIVE: Ms. Valenzuela recently returned from her CABG and is recovering in the intensive care unit. She is asleep, but easily arousable. She has no complaints. OBJECTIVE: VITAL SIGNS: Her blood pressure is 110 systolic with a pulse rate of 90. LUNGS: Clear. PLAN: We will continue to follow with CV Service. Job ID: [id number]
[2019-10-03] MEDS: CEFAZOLIN 2 GM in Premix Bag 1 BAG IVPB SCH ×2 (16:16→23:28)
[2019-10-03] MEDS: Fentanyl 100 MCG/2 ML VIAL SLOW IVP PRN (16:20)
[2019-10-03] MEDS: Vancomycin 1.5 GRAM/300 ML BAG 1.5 GM in Premix Bag 1 BAG IVPB SCH (17:03)
[2019-10-03 17:55] LABS: Hemoglobin 10.3 g/dL (12.0-16.0)
[2019-10-03 18:09] LABS: Potassium 4.3 mmol/L (3.5-5.1)
[2019-10-03] MEDS: Famotidine/PF 20 mg/2ml Vial SLOW IVP SCH (20:55)
[2019-10-03] MEDS: Atorvastatin Calcium 20 MG TAB PO SCH (20:55)
--- NOTE | 2019-10-03 22:52 | CON ---
DATE OF CONSULTATION: 10/03/2019 HISTORY: Ms. Valenzuela is a very pleasant 73-year-old female, who underwent aortic valve replacement today as well as coronary artery bypass grafting. She had the saphenous going to her posterior descending artery. She had a #19 Inspiris bioprosthetic aortic valve placed. She is extubated postoperatively and has no complaints when I saw her. PAST MEDICAL HISTORY: 1. Remarkable for diabetes. 2. Hypertension. 3. Reflux disease. 4. Breast cancer. 5. History of aortic stenosis. 6. History of hypertension. 7. History of cholecystectomy. 8. History of an appendectomy. 9. History of right knee replacement. 10. History of tubal ligation. 11. History of ankle surgery. 12. History of cataract surgery. FAMILY HISTORY: Positive for vascular disease. She is a nonsmoker and nondrinker. REVIEW OF SYSTEMS: Otherwise negative. PHYSICAL EXAMINATION: VITAL SIGNS: Heart rate 78, respiratory rates in the teens, blood pressure is 104/52, heart rate is 80. HEAD AND NECK: Unremarkable. LUNGS: Clear. HEART: Regular rhythm. S1 and S2 are normal. ABDOMEN: Soft and nontender. EXTREMITIES: Without clubbing, cyanosis, or edema. NEURO: Nonfocal. LABORATORY DATA: White count 28.7, hemoglobin 10.8, platelets 168. Electrolytes are normal. Creatinine is 0.8. Blood gas at 11:25 this morning 7.30, CO2 is 46 , PO2 of 102. IMPRESSION: Status post coronary artery bypass grafting and aortic valve replacement, clinically doing well. We will be happy to follow the other physicians while she is in the Critical Care Unit. This is a 70 min consult with 50% of the time spent on the unit with coordination of care. Job ID: [id number] [facility]
[2019-10-03] MEDS: traMADol HCl 50 MG TAB PO PRN (23:29)
[2019-10-04] MEDS: Fentanyl 100 MCG/2 ML VIAL SLOW IVP PRN (00:21)
[2019-10-04 04:21] LABS: #Eosinphils 0.1 thou/uL (0.0-0.7); #Monocytes 1.2 thou/uL (0.11-0.59); #Neutrophils 13.1 thou/uL (1.40-6.50); %Eosinophils 0.4 % (0.0-10.0); %Lymphocytes 6.7 % (21.0-51.0); %Monocytes 7.7 % (0.0-10.0); %Neutrophils 85.1 % (42.0-75.0); Hemoglobin 9.5 g/dL (12.0-16.0); Mean Corpuscular HGB CONC 32.8 g/dL (32.0-36.0); Mean Corpuscular Hemoglobin 31.5 pg (27.0-31.0); Mean Platelet Volume 8.9 fL (7.4-10.4); Platelet Count 162 thou/uL (130-400); RBC Distribution Width 12.9 % (11.5-14.5); White Blood Cell (WBC) Count 15.4 thou/uL (4.8-10.8)
[2019-10-04 04:36] LABS: Anion Gap 11 mmol/L (10-20); BUN (Urea Nitrogen) 17 mg/dL (9.8-20.1); Calc. Creatinine Clearance 61 mL/min (70-130); Calcium 6.9 mg/dL (7.8-10.44); Carbon Dioxide 21 mmol/L (23-31); Chloride 105 mmol/L (98-107); Estimated GFR-MDRD 44; Glucose 132 mg/dL (83-110); Sodium 133 mmol/L (136-145)
[2019-10-04] MEDS: Ketorolac Tromethamine 30 MG/ML VIAL IVP SCH ×2 (05:22→16:10)
[2019-10-04] MEDS: Vancomycin 1.5 GRAM/300 ML BAG 1.5 GM in Premix Bag 1 BAG IVPB SCH (05:23)
[2019-10-04] MEDS: Potassium Chloride 20 MEQ/100 ML PREMIX BAG IVPB PRN (05:24)
--- NOTE | 2019-10-04 06:22 | PDOC.FM ---
- Subjective Subjective: Pt is doing well this am. She has some chest pain with cough but is post-op day 1. She is not using an incentive spirometer. Otherwise she is doing well and sitting in the chair. - Objective Vital Signs & Weight: Vital Signs (12 hours) Temp Pulse Resp Pulse Ox 10/04/19 05:00 98.8 F 10/03/19 23:56 89 16 97 10/03/19 19:30 99 10/03/19 19:28 83 16 100 Weight Weight 93.8 kg Most Recent Monitor Data Heart Rate from ECG 85 NIBP 88/50 NIBP BP-Mean 65 Respiration from ECG 17 SpO2 96 I&O: 10/02/19 10/03/19 10/04/19 06:59 06:59 06:59 Intake Total 118 2080 2683.9 Output Total 1655 Balance 118 2080 1028.9 Result Diagrams: 10/04/19 03:30 10/04/19 03:30 Phys Exam - Physical Examination Constitutional: NAD HEENT: PERRLA, moist MMs Neck: no JVD, full ROM Respiratory: no wheezing, clear to auscultation bilateral chest tube on R side Cardiovascular: RRR, no significant murmur Gastrointestinal: soft, positive bowel sounds Musculoskeletal: no edema, pulses present Neurological: non-focal, normal sensation Psychiatric: normal affect, A&O x 3 Skin: no rash, cap refill <2 seconds Dx/Plan (1) Aortic stenosis Code(s): I35.0 - NONRHEUMATIC AORTIC (VALVE) STENOSIS Status: Acute (2) Coronary atherosclerosis Code(s): I25.10 - ATHSCL HEART DISEASE OF [place] CORONARY ARTERY W/O ANG PCTRS Status: Chronic (3) Hyperlipidemia Code(s): E78.5 - HYPERLIPIDEMIA, UNSPECIFIED Status: Chronic (4) Hypertension Code(s): I10 - ESSENTIAL (PRIMARY) HYPERTENSION Status: Chronic (5) Type 2 diabetes mellitus Status: Chronic - Plan Plan: # Severe aortic stenosis s/p Echo showing: EF 55-60%, LVH, mildly dilated LA, severe - mean gradient across the valve of 44mmHg and valve area 0.8cm2. Seen on cath as well. EKG showing LBBB. Trop max 0.100. - CV surg consulted. 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 - Plan per above - restart ASA, BB per CV surg SANNA -Monitor HTN - Controlled on ACEI, continue to monitor - PRNs available HLD LDL 59, Total 150, TG 209. ASCVD 36.5%. -Atorvastatin 40mg qHS DM2 A1c 6.0. - Hold SS, home meds for surgery Of note - COVID neg on 09/29. Code: FULL PPx: Restart pending CV surg PCP: Nora Dispo: Monitor in ICU and consider transition to floor Addendum - Attending - Attending Attestation Date/Time: 10/04/19 1321 I personally evaluated the patient and discussed the management with Dr. Ramirez. I agree with the History, Examination, Assessment and Plan documented above with any addition or exceptions noted below. Patient overall is doing well pod 1 s/p cabg and valve replacement. CV care per CV surg. Pain is controlled. Patient without concerns.
[2019-10-04] MEDS: CEFAZOLIN 2 GM in Premix Bag 1 BAG IVPB SCH (07:52)
[2019-10-04] MEDS: Aspirin 325 MG TAB PO SCH ×2 (07:53→08:19)
[2019-10-04] MEDS: Famotidine/PF 20 mg/2ml Vial SLOW IVP SCH ×2 (07:53→21:00)
[2019-10-04] MEDS: Magnesium 2 GM/50 ML 2 GM in Premix Bag 1 BAG IVPB SCH ×2 (07:53→08:36)
--- NOTE | 2019-10-04 07:59 | RAD ---
XR Chest 1 View Portable History: Open-heart surgery Comparison: Radiograph prior day Findings: Right subclavian central venous catheter tip projects into the neck, out of field of view, unchanged from comparison exam. Mediastinal drains are similar. Dense mitral annular calcifications. Prior aortic valve replacement. Scattered atelectasis. No pneumothorax. Impression: Improving lung aeration.
[2019-10-04] MEDS: traMADol HCl 50 MG TAB PO PRN ×3 (08:20→21:43)
[2019-10-04] MEDS: Insulin Regular 300 UNITS/3 ML VIAL SC PRN (09:51)
--- NOTE | 2019-10-04 14:28 | PRG ---
DATE OF SERVICE: 10/04/2019 SUBJECTIVE: Oksana Valenzuela is in no distress. OBJECTIVE: VITAL SIGNS: Heart rates blood pressure 119/52, respiratory rates in the teens. LUNGS: Clear. HEART: Regular rhythm. ABDOMEN: Soft. DIAGNOSTIC STUDIES: Chest x-ray shows better lung inflation today. White count 15.4, hemoglobin 9.5, platelets 162. Sodium 133, potassium 4, chloride 105, bicarb 21, BUN creatinine 1.21. IMPRESSION: Status post aortic valve replacement with coronary artery bypass grafting, medically stable. It is anticipated that she may move out of the Critical Care Unit if there is a room available. There are no acute pulmonary issues. Job ID: [id number]
[2019-10-04] MEDS: D5 1/2 NS w/20 mEq KCL 1,000 ML IV SCH (16:10)
[2019-10-04] MEDS ORDERED: Acetaminophen 325 MG TAB PO PRN ×2 (18:42→18:44)
[2019-10-04] MEDS: Atorvastatin Calcium 20 MG TAB PO SCH (21:00)
[2019-10-05] MEDS: traMADol HCl 50 MG TAB PO PRN ×4 (04:37→23:07)
[2019-10-05 05:10] LABS: #Basophils 0.1 thou/uL (0.0-0.2); #Eosinphils 0.2 thou/uL (0.0-0.7); #Lymphocytes 2.3 thou/uL (1.20-3.40); #Monocytes 1.4 thou/uL (0.11-0.59); %Basophils 0.4 % (0.0-1.0); %Eosinophils 1.4 % (0.0-10.0); %Lymphocytes 15.5 % (21.0-51.0); %Monocytes 9.2 % (0.0-10.0); %Neutrophils 73.5 % (42.0-75.0); Hemoglobin 9.1 g/dL (12.0-16.0); Mean Corpuscular HGB CONC 32.9 g/dL (32.0-36.0); Mean Corpuscular Hemoglobin 31.5 pg (27.0-31.0); Mean Corpuscular Volume 95.7 fL (78.0-98.0); Mean Platelet Volume 8.4 fL (7.4-10.4); Platelet Count 154 thou/uL (130-400); RBC Distribution Width 13.2 % (11.5-14.5); White Blood Cell (WBC) Count 14.9 thou/uL (4.8-10.8)
[2019-10-05 05:24] LABS: Anion Gap 9 mmol/L (10-20); BUN (Urea Nitrogen) 14 mg/dL (9.8-20.1); Calc. Creatinine Clearance 73 mL/min (70-130); Calcium 6.7 mg/dL (7.8-10.44); Carbon Dioxide 22 mmol/L (23-31); Chloride 100 mmol/L (98-107); Estimated GFR-MDRD 53; Glucose 132 mg/dL (83-110); Potassium 4.1 mmol/L (3.5-5.1); Sodium 127 mmol/L (136-145)
[2019-10-05] MEDS: Bisacodyl 5 MG TAB PO PRN (09:13)
[2019-10-05] MEDS: Aspirin 325 MG TAB PO SCH (09:14)
[2019-10-05] MEDS: Famotidine/PF 20 mg/2ml Vial SLOW IVP SCH ×2 (09:14→21:01)
--- NOTE | 2019-10-05 09:32 | RAD ---
PORTABLE CHEST: Date: 10/05/2019 PROVIDED CLINICAL HISTORY: Postop. FINDINGS: Comparison with 10/04/2019. Significant interval change with respect to the prior examination is not apparent. IMPRESSION: As above. POS: [facility]
[2019-10-05] MEDS ORDERED: Metoprolol Tartrate 25 MG TAB PO SCH ×2 (12:30→21:00)
[2019-10-05] MEDS ORDERED: Potassium Chloride 20 MEQ TAB PO SCH (12:30)
--- NOTE | 2019-10-05 14:34 | PDOC.FM ---
- Subjective Subjective: Mrs. Valenzuela is doing well this morning. She states she was having some chest pain because she had just been moving in bed but that it was mild. Overall, she did not have pain complaints. She stated she is itchy and feels the compression socks are very tight. She does not remember if she was itchy before the surgery or after but says they found out she is allergic to the adhesive from the tapes they had been using on her so this is a possible explanation. There were excoriations on her thigh where she had been itching but no obvious rash. Her R dorsalis pedis pulse was 1+; I could not appreciate her L dorsalis pedis because I could not get her compression sock down far enough. She states she normally takes allergy medications but not for itching. I will add Cetirizine to her orders to see if this helps with her symptoms. - Objective Vital Signs & Weight: Vital Signs (12 hours) Temp Pulse Pulse Pulse Resp BP BP 10/05/19 12:06 95 92 159/64 H 154/70 H 10/05/19 12:05 98.5 F 92 18 10/05/19 09:20 10/05/19 07:31 97.6 F 90 16 10/05/19 05:31 10/05/19 05:21 97.9 F 89 18 BP Pulse Ox 10/05/19 12:06 10/05/19 12:05 154/70 H 97 10/05/19 09:20 95 10/05/19 07:31 119/79 95 10/05/19 05:31 96 10/05/19 05:21 150/62 H 96 Weight Weight 93.984 kg Most Recent Monitor Data Heart Rate from ECG 87 NIBP 127/65 NIBP BP-Mean 80 Respiration from ECG 13 SpO2 100 I&O: 10/04/19 10/05/19 10/06/19 06:59 06:59 06:59 Intake Total 2803.9 1672.3 Output Total 1700 1225 Balance 1103.9 447.3 Result Diagrams: 10/05/19 04:49 10/05/19 04:49 Phys Exam - Physical Examination Constitutional: NAD awake, alert, oriented. Holding pillow to her chest EOMI Neck: supple, full ROM no resp distress Incision taped/covered Musculoskeletal: edema present (Has compression socks on from feet to thigh) Neurological: moves all 4 limbs Psychiatric: normal affect, A&O x 3 Skin: no rash (Excoriations on thigh) Dx/Plan - Plan Plan: Severe aortic stenosis s/p Echo showing: EF 55-60%, LVH, mildly dilated LA, severe - mean gradient across the valve of 44mmHg and valve area 0.8cm2. Seen on cath as well. EKG showing LBBB. Trop max 0.100. - CV surg consulted. 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 - Plan per above - restart ASA, BB per CV surg SANNA -Monitor HTN - Controlled on ACEI, continue to monitor - PRNs available HLD LDL 59, Total 150, TG 209. ASCVD 36.5%. -Atorvastatin 40mg qHS DM2 A1c 6.0. - Hold SS, home meds for surgery Of note - COVID neg on 09/29. Code: FULL PPx: Restart pending CV surg PCP: Nora Dispo: Monitor in ICU and consider transition to floor Addendum - Attending - Attending Attestation Date/Time: 10/05/19 7790 I personally evaluated the patient and discussed the management with Dr. Manas Ko. I agree with the History, Examination, Assessment and Plan documented above with any addition or exceptions noted below. The patient is doing well s/p cabg and aortic valve replacement. Adding antihistamine for itching. Will f/u with CV surg recs. Repeat bmp in the am to monitor hyponatremia.
[2019-10-05] MEDS: Potassium Chloride 20 MEQ TAB PO SCH (17:33)
--- NOTE | 2019-10-05 18:31 | PRG ---
DATE OF SERVICE: 10/05/2019 SUBJECTIVE: Oksana Valenzuela was examined after she went for a walk. She said the walk made her nauseated. During the time I was standing in the room, which is close to 5 minutes, her nausea resolved. She is not having any chest pain. OBJECTIVE: VITAL SIGNS: She is afebrile. Heart rate is in 80s, respiratory rate 16, oximetry is 98% on room air, blood pressure at noon was 159/64. LUNGS: Clear. HEART: Regular rhythm. ABDOMEN: Soft. EXTREMITIES: Without edema. LABORATORY DATA: White count 14.9, hemoglobin 9.1, platelets 154. Sodium 127, potassium 4.1, chloride 100, bicarb 22, BUN 14, and creatinine 1.02. IMPRESSION: 1. Status post coronary artery bypass grafting with an aortic valve. 2. Mild hyponatremia, possibly related to the diuretics. Overall, she is stable. Job ID: [id number]
[2019-10-05] MEDS: Atorvastatin Calcium 20 MG TAB PO SCH (21:01)
[2019-10-05] MEDS ORDERED: Ondansetron ODT 4 MG TAB SL PRN (21:40)
[2019-10-05] MEDS: Calcium Carbonate 500 MG ChewTAB PO PRN (21:49)
[2019-10-06] MEDS: Calcium Carbonate 500 MG ChewTAB PO PRN (04:23)
[2019-10-06] MEDS: Bisacodyl 5 MG TAB PO PRN ×2 (04:23→18:38)
[2019-10-06] MEDS: traMADol HCl 50 MG TAB PO PRN ×3 (04:24→16:52)
[2019-10-06 05:37] LABS: #Basophils 0.1 thou/uL (0.0-0.2); #Eosinphils 0.3 thou/uL (0.0-0.7); #Lymphocytes 2.3 thou/uL (1.20-3.40); #Monocytes 1.3 thou/uL (0.11-0.59); #Neutrophils 10.6 thou/uL (1.40-6.50); %Basophils 0.6 % (0.0-1.0); %Eosinophils 2.1 % (0.0-10.0); %Monocytes 8.9 % (0.0-10.0); %Neutrophils 72.4 % (42.0-75.0); Hemoglobin 9.9 g/dL (12.0-16.0); Mean Corpuscular HGB CONC 32.8 g/dL (32.0-36.0); Mean Corpuscular Hemoglobin 31.3 pg (27.0-31.0); Mean Corpuscular Volume 95.7 fL (78.0-98.0); Mean Platelet Volume 8.5 fL (7.4-10.4); Platelet Count 182 thou/uL (130-400); RBC Distribution Width 13.1 % (11.5-14.5); Red Blood Cell (RBC) Count 3.17 mill/uL (4.20-5.40); White Blood Cell (WBC) Count 14.6 thou/uL (4.8-10.8)
[2019-10-06 05:54] LABS: Anion Gap 12 mmol/L (10-20); BUN (Urea Nitrogen) 16 mg/dL (9.8-20.1); Calc. Creatinine Clearance 83 mL/min (70-130); Calcium 7.4 mg/dL (7.8-10.44); Carbon Dioxide 21 mmol/L (23-31); Chloride 96 mmol/L (98-107); Estimated GFR-MDRD 57; Glucose 111 mg/dL (83-110); Potassium 4.6 mmol/L (3.5-5.1); Sodium 124 mmol/L (136-145)
--- NOTE | 2019-10-06 06:08 | PDOC.FM ---
- Subjective Subjective: Patient complains of nausea and SOB when walking. She denies headache, vision changes, chest pain and edema. - Objective MAR Reviewed: Yes Vital Signs & Weight: Vital Signs (12 hours) Temp Pulse Resp BP Pulse Ox 10/06/19 05:24 96 10/06/19 04:20 97.5 F L 84 20 141/65 H 96 10/05/19 19:50 97.7 F 77 20 119/61 99 Weight Weight 100.561 kg Most Recent Monitor Data Heart Rate from ECG 87 NIBP 127/65 NIBP BP-Mean 80 Respiration from ECG 13 SpO2 100 I&O: 10/04/19 10/05/19 10/06/19 06:59 06:59 06:59 Intake Total 2803.9 1672.3 2360 Output Total 1700 1225 1350 Balance 1103.9 447.3 1010 Result Diagrams: 10/06/19 05:21 10/06/19 05:21 Phys Exam - Physical Examination Constitutional: NAD HEENT: moist MMs, sclera anicteric Neck: supple, full ROM Respiratory: no wheezing, clear to auscultation bilateral Cardiovascular: RRR Systolic murmur Gastrointestinal: soft, non-tender, positive bowel sounds Musculoskeletal: no edema, pulses present Compression stockings in place Neurological: non-focal, moves all 4 limbs Lymphatic: no nodes Psychiatric: normal affect, A&O x 3 Skin: no rash, normal turgor Deviation from normal: Clean incision with [place] in place Dx/Plan - Plan Plan: Severe aortic stenosis Echo showed EF 55-60%, LVH, mildly dilated LA, severe - mean gradient across the valve of 44mmHg and valve area 0.8cm2. Seen on cath as well. EKG showing LBBB. Trop max 0.100. 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 - Plan per above - Continue home meds SANNA, improved Creatinine was 1.21 post surgery. Now .96 -Daily BMP Hyponatremia Na 139 -> 133 -> 127 -> 124. -Urine Na and creatinine levels to further investigate cause HTN - Controlled on ACEI, continue to monitor - PRNs available HLD LDL 59, Total 150, TG 209. ASCVD 36.5%. -Continue atorvastatin 40mg qHS DM2 A1c 6.0. -Continue home meds Of note - COVID neg on 09/29. Code: FULL PPx: Protonix PCP: Nora Dispo: Rehab pending CV recs Addendum - Attending - Attending Attestation Date/Time: 10/06/19 1220 I personally evaluated the patient and discussed the management with Dr. Valencia. I agree with the History, Examination, Assessment and Plan documented above with any addition or exceptions noted below. Patient feeling well. Primary mgmg post op by CV surgery. Pursuing workup of her hyponatremia that seems to be worsening.
[2019-10-06] MEDS ORDERED: Ondansetron ORAL SOLN. 4 MG/5 ML UDCUP PO PRN (07:24)
[2019-10-06] MEDS ORDERED: Ondansetron ODT 4 MG TAB PO PRN (07:51)
[2019-10-06] MEDS: Furosemide 40 MG TAB PO SCH (08:53)
[2019-10-06] MEDS: Aspirin 325 MG TAB PO SCH (08:53)
[2019-10-06] MEDS: Metoprolol Tartrate 25 MG TAB PO SCH ×2 (08:53→20:08)
[2019-10-06] MEDS: Potassium Chloride 20 MEQ TAB PO SCH ×2 (08:53→16:51)
[2019-10-06 09:10] LABS: Creatinine, Urine 51.45 mg/dL (47-110); Sodium, Urine Less than 20 mmol/L (Not Available)
--- NOTE | 2019-10-06 09:40 | RAD ---
CHEST 1 VIEW: Date: 10/06/2019 HISTORY: Post coronary artery bypass. COMPARISON: Radiograph from prior day. FINDINGS: The right subclavian central venous catheter continues to have a cephalad orientation with tip out of field of view. The linear opacities within the right middle lobe and right lower lobe are relatively similar, likely atelectasis. No pneumothorax. Granuloma left lower lobe. IMPRESSION: Similar examination to chest. No overt evidence of pneumonia. POS: [facility]
[2019-10-06] MEDS: Loratadine 5 MG/5 ML UDCUP PO SCH (10:11)
--- NOTE | 2019-10-06 13:58 | PRG ---
DATE OF SERVICE: 10/06/2019 SUBJECTIVE: Ms. Valenzuela had no complaints except she has sternal discomfort. She had no incision erythema or drainage. OBJECTIVE: equal breath sounds. HEART: Regular rhythm. ABDOMEN: Soft. EXTREMITIES: Without edema. She still is complaining of nausea when she has pain, but if she does not move, she has no nausea. She had a bowel movement this morning. IMPRESSION: Status post aortic valve with coronary artery bypass grafting, clinically stable. We will sign off. Job ID: [id number]
[2019-10-06] MEDS ORDERED: Promethazine HCl 12.5 MG SUPP PR PRN (19:43)
[2019-10-06] MEDS ORDERED: Promethazine HCl 25 MG/ML VIAL IM PRN (19:43)
[2019-10-06] MEDS ORDERED: Promethazine HCl 12.5 MG in Sodium Chloride 0.9% 50 ML IVPB PRN (19:43)
[2019-10-06] MEDS: Atorvastatin Calcium 20 MG TAB PO SCH (20:08)
--- NOTE | 2019-10-07 06:06 | PDOC.FM ---
- Subjective Subjective: The patient experienced nausea overnight when moving to the bathroom that improved after Phenergan and Zofran. She says she was told that she refused working with PT yesterday but she does not remember this. She is ready to work with them today. The patient is still complaining of a "stuck in my throat" feeling when swallowing solid foods since the surgery. She has not tried eating anything solid this morning. - Objective MAR Reviewed: Yes Vital Signs & Weight: Vital Signs (12 hours) Temp Pulse Resp BP BP Pulse Ox 10/07/19 04:40 97.5 F L 76 20 120/59 L 95 10/07/19 00:13 100 10/06/19 19:54 97.5 F L 86 20 159/71 H 94 L Weight Weight 100.153 kg Most Recent Monitor Data Heart Rate from ECG 87 NIBP 127/65 NIBP BP-Mean 80 Respiration from ECG 13 SpO2 100 I&O: 10/05/19 10/06/19 10/07/19 06:59 06:59 06:59 Intake Total 1672.3 2360 1040 Output Total 1225 1350 2650 Balance 447.3 1010 -1610 Result Diagrams: 10/07/19 06:14 10/07/19 06:14 Phys Exam - Physical Examination Constitutional: NAD HEENT: moist MMs, sclera anicteric Neck: supple, full ROM Respiratory: no wheezing, clear to auscultation bilateral Cardiovascular: RRR Systolic murmur Gastrointestinal: soft, positive bowel sounds Musculoskeletal: no edema, pulses present Neurological: non-focal, moves all 4 limbs Lymphatic: no nodes Psychiatric: normal affect, A&O x 3 Skin: no rash Deviation from normal: Incision line is clean and healing appropriately Dx/Plan - Plan Plan: Severe aortic stenosis s/p distal right coronary artery bypass and aortic valve replacement with bioprosthetic valve Echo showed EF 55-60%, LVH, mildly dilated LA, severe - mean gradient across the valve of 44mmHg and valve area 0.8cm2. Seen on cath as well. EKG showing LBBB. Trop max 0.100. 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 - Plan per above - Continue home meds SANNA,resolved Creatinine was 1.21 post surgery. 0.98 today. -Daily BMP Hyponatremia Na 139 -> 133 -> 127 -> 124. Urine and serum osmol were both low, supporting increased water intake as the cause of hyponatremia. Patient placed on fluid restriction and encouraged to advance diet as tolerated. Na this am was 126. Oral food intake is still poor. -Daily BMP -Encouraged oral PO intake HTN - Controlled on ACEI, continue to monitor - PRNs available HLD LDL 59, Total 150, TG 209. ASCVD 36.5%. -Continue atorvastatin DM2 A1c 6.0. -Continue home meds Of note - COVID neg on 09/29. Code: FULL PPx: Protonix PCP: Nora Dispo: Cardiac rehab pending CV recs Addendum - Attending - Attending Attestation Date/Time: 10/07/19 1146 I personally evaluated the patient and discussed the management with Dr. Valencia. I agree with the History, Examination, Assessment and Plan documented above with any addition or exceptions noted below. Patient feeling stable. Her hyponatremia is suspected due to poor solute intake while taking Lasix, and is supported by urine studies. Encourage PO intake, consider swallow study if she does not have improvements in symptoms. She needs to work with PT and work toward dispo. CV surgery on board.
[2019-10-07 06:59] LABS: #Basophils 0.1 thou/uL (0.0-0.2); #Eosinphils 0.3 thou/uL (0.0-0.7); #Lymphocytes 2.6 thou/uL (1.20-3.40); #Monocytes 1.3 thou/uL (0.11-0.59); %Basophils 0.5 % (0.0-1.0); %Eosinophils 1.9 % (0.0-10.0); %Lymphocytes 16.9 % (21.0-51.0); %Monocytes 8.3 % (0.0-10.0); %Neutrophils 72.4 % (42.0-75.0); Hemoglobin 9.4 g/dL (12.0-16.0); Mean Corpuscular HGB CONC 33.6 g/dL (32.0-36.0); Mean Corpuscular Hemoglobin 32.2 pg (27.0-31.0); Mean Platelet Volume 8.1 fL (7.4-10.4); Platelet Count 216 thou/uL (130-400); Red Blood Cell (RBC) Count 2.93 mill/uL (4.20-5.40); White Blood Cell (WBC) Count 15.2 thou/uL (4.8-10.8)
[2019-10-07 07:19] LABS: Anion Gap 10 mmol/L (10-20); BUN (Urea Nitrogen) 16 mg/dL (9.8-20.1); Calc. Creatinine Clearance 80 mL/min (70-130); Calcium 7.8 mg/dL (7.8-10.44); Carbon Dioxide 24 mmol/L (23-31); Chloride 97 mmol/L (98-107); Estimated GFR-MDRD 55; Glucose 119 mg/dL (83-110); Potassium 4.9 mmol/L (3.5-5.1); Sodium 126 mmol/L (136-145)
[2019-10-07] MEDS: Aspirin 325 MG TAB PO SCH (07:57)
[2019-10-07] MEDS: Metoprolol Tartrate 25 MG TAB PO SCH ×2 (07:57→21:28)
[2019-10-07] MEDS: Furosemide 40 MG TAB PO SCH (07:57)
[2019-10-07] MEDS: Loratadine 5 MG/5 ML UDCUP PO SCH (08:24)
[2019-10-07] MEDS: Atorvastatin Calcium 20 MG TAB PO SCH (21:28)
[2019-10-08 04:42] LABS: #Basophils 0.1 thou/uL (0.0-0.2); #Eosinphils 0.3 thou/uL (0.0-0.7); #Lymphocytes 1.8 thou/uL (1.20-3.40); #Monocytes 1.2 thou/uL (0.11-0.59); #Neutrophils 7.9 thou/uL (1.40-6.50); %Basophils 0.6 % (0.0-1.0); %Eosinophils 2.4 % (0.0-10.0); %Lymphocytes 16.2 % (21.0-51.0); %Monocytes 10.9 % (0.0-10.0); %Neutrophils 69.9 % (42.0-75.0); Hemoglobin 8.4 g/dL (12.0-16.0); Mean Corpuscular HGB CONC 33.3 g/dL (32.0-36.0); Mean Corpuscular Hemoglobin 31.4 pg (27.0-31.0); Mean Corpuscular Volume 94.2 fL (78.0-98.0); Mean Platelet Volume 7.9 fL (7.4-10.4); Platelet Count 221 thou/uL (130-400); Red Blood Cell (RBC) Count 2.66 mill/uL (4.20-5.40); White Blood Cell (WBC) Count 11.3 thou/uL (4.8-10.8)
[2019-10-08 05:03] LABS: Anion Gap 12 mmol/L (10-20); BUN (Urea Nitrogen) 15 mg/dL (9.8-20.1); Calc. Creatinine Clearance 84 mL/min (70-130); Calcium 7.6 mg/dL (7.8-10.44); Carbon Dioxide 21 mmol/L (23-31); Chloride 99 mmol/L (98-107); Estimated GFR-MDRD 59; Glucose 97 mg/dL (83-110); Sodium 128 mmol/L (136-145)
--- NOTE | 2019-10-08 05:50 | PDOC.FM ---
- Subjective Subjective: The patient reports she walked around the unit multiple times yesterday with PT and took a shower. She says the feeling of "food catching" while swallowing has improved and only occurs with meat now. She reports improved SOB when walking but denies nausea, chest pain, palpitations and edema. - Objective MAR Reviewed: Yes Vital Signs & Weight: Vital Signs (12 hours) Temp Pulse Resp BP Pulse Ox 10/08/19 04:42 98.4 F 72 18 121/58 L 97 10/07/19 21:19 98 F 105 H 20 143/62 H 97 Weight Weight 96.978 kg Most Recent Monitor Data Heart Rate from ECG 87 NIBP 127/65 NIBP BP-Mean 80 Respiration from ECG 13 SpO2 100 I&O: 10/06/19 10/07/19 10/08/19 06:59 06:59 06:59 Intake Total 2360 1040 1023 Output Total 1350 2650 1000 Balance 1010 -1610 23 Result Diagrams: 10/08/19 04:11 10/08/19 04:11 Phys Exam - Physical Examination Constitutional: NAD HEENT: moist MMs, sclera anicteric Neck: supple, full ROM Respiratory: no wheezing, clear to auscultation bilateral Cardiovascular: RRR Systolic murmur Gastrointestinal: soft, non-tender, positive bowel sounds Musculoskeletal: no edema, pulses present Neurological: non-focal, moves all 4 limbs Lymphatic: no nodes Psychiatric: normal affect, A&O x 3 Skin: no rash Deviation from normal: Incision site clean, healing appropriately Dx/Plan - Plan Plan: Severe aortic stenosis s/p distal right coronary artery bypass and aortic valve replacement with bioprosthetic valve Echo showed EF 55-60%, LVH, mildly dilated LA, severe - mean gradient across the valve of 44mmHg and valve area 0.8cm2. Seen on cath as well. EKG showing LBBB. Trop max 0.100. 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 - Plan per above - Continue home meds Hyponatremia Na 139 -> 133 -> 127 -> 124. Urine and serum osmol were both low, supporting poor PO intake as the cause of hyponatremia. Patient placed on fluid restriction and encouraged to advance diet as tolerated. Na then improved to 126 -> 128. Tolerating heart healthy diet now. -Encouraged oral PO intake HTN - Controlled on ACEI, continue to monitor - PRNs available HLD LDL 59, Total 150, TG 209. ASCVD 36.5%. -Continue atorvastatin DM2 A1c 6.0. -Holding home metformin while inpatient Of note - COVID neg on 09/29. Code: FULL PPx: Protonix PCP: Nora Dispo: Cardiac rehab pending approval Addendum - Attending - Attending Attestation Date/Time: 10/08/19 [id number] I personally evaluated the patient and discussed the management with Dr. Valencia. I agree with the History, Examination, Assessment and Plan documented above with any addition or exceptions noted below. Patient feeling well. Appetite improving. Awaiting further CV surgery recs and cardiac rehab acceptance from insurance and will be stable for dc home at that time.
[2019-10-08 07:09] VITALS: TEMP 97.6
[2019-10-08] MEDS ORDERED: Potassium Chloride 10 MEQ TAB PO SCH (08:00)
[2019-10-08] MEDS: Metoprolol Tartrate 25 MG TAB PO SCH (08:15)
[2019-10-08] MEDS: Loratadine 5 MG/5 ML UDCUP PO SCH (08:16)
[2019-10-08] MEDS: Furosemide 40 MG TAB PO SCH ×2 (08:16→13:59)
[2019-10-08] MEDS ORDERED: Lactinex Tablet PO SCH (09:00)
[2019-10-08] MEDS: Calcium Carbonate 500 MG ChewTAB PO PRN (10:14)
[2019-10-08] MEDS: Insulin Regular 300 UNITS/3 ML VIAL SC PRN (11:28)
[2019-10-08 11:31] VITALS: BP 124/60
--- NOTE | 2019-10-08 18:30 | PDOC.BPN ---
- Brief Progress Note Tramadol prescription sent to pharmacy did not have appropriate MINI number. I called the pharmacy and gave a verbal order with my personal MINI number. [employer] aware is appropriate Tramadol 50mg PO q6hr prn pain Disp. 28
--- NOTE | 2019-10-09 04:01 | DIS ---
DATE OF ADMISSION: 10/01/2019 DATE OF DISCHARGE: 10/08/2019 CONSULTS: 1. Dr. Taylor (Cardiovascular Surgery). 2. Dr. Marinelli (Pulmonology). 3. Dietitian. 4. OT. 5. PT. 6. Speech Evaluation. PROCEDURES: On 10/02; distal right coronary artery bypass and aortic valve replacement with bioprosthetic valve. PRIMARY DIAGNOSIS: Severe aortic stenosis, status post distal right coronary artery bypass and aortic valve replacement with bioprosthetic valve. SECONDARY DIAGNOSES: 1. Coronary artery disease, status post coronary artery bypass grafting. 2. Hyponatremia, resolved. 3. Hypertension. 4. Hyperlipidemia. 5. Type 2 diabetes. DISCHARGE MEDICATIONS: 1. Anastrozole 1 mg p.o. at bedtime. 2. Calcium carbonate/vitamin D3, 600 mg/125 units 1 tablet p.o. b.i.d. 3. Fiber gummies, 2 gummies p.o. daily. 4. Metformin HCL 500 mg p.o. at bedtime. 5. Multivitamin 1 capsule p.o. daily. 6. Simvastatin 20 mg p.o. at bedtime. 7. Aspirin 325 mg p.o. daily. 8. Metoprolol 25 mg p.o. b.i.d. 9. Tramadol 500 mg p.o. q.6h p.r.n. for 7 days. HISTORY OF PRESENT ILLNESS: The patient is a 74-year-old female who presented to the [facility] after syncope on 09/29. She was found to have severe aortic stenosis with EF 55-60%. She was transferred to [facility] on . Dr. Taylor, Cardiovascular Surgery, was consulted and took the patient to the OR on 10/02 for a distal right coronary artery bypass and aortic valve replacement with bioprosthetic valve. The patient progressed after surgery as expected. She worked with Physical Therapy and began walking around the unit on postop day 3. She initially reported nausea when standing which was treated with Zofran 4 mg q.8h p.r.n. She also experienced pain postop that was well controlled with Tramadol 50 mg q.6h p.r.n. The patient reported shortness of breath when walking but noted it improved by postop day 5. During admission, the patient had hyponatremia. Sodium level of 139 in the ED that then decreased to 133, then 127, and then 124. Urine and serum osmolality were both low, supporting poor oral intake as the cause of hyponatremia post surgery. The patient was placed on fluid restrictions and encouraged to advance her diet as tolerated. Sodium improved to 126 then 128. The patient was deemed stable for discharge on 10/07. Cardiovascular Surgery and Physical Therapy both recommended inpatient rehabilitation. However, the patient did not wish to go inpatient. She was agreeable to cardiac rehab outpatient, which she will be discharged home with. She will continue metoprolol 25 mg p.o. b.i.d. per Cardiovascular Surgery recommendation. She will also continue aspirin 325 mg for 3 months and then decrease to 81 mg p.o. daily. The patient was not placed on her home medication of lisinopril/hydrochlorothiazide 20/25 mg while inpatient. Her blood pressure remained stable, and the medication was discontinued on discharge. DISPOSITION: Stable. DISCHARGE INSTRUCTIONS: 1. Location: Home with outpatient cardiac rehab. 2. Diet: Heart healthy. 3. Activity: As tolerated. 4. Follow up with Dr. Melendez (PCP) within 3 to 5 days. The patient will also follow up with Cardiology as outpatient. Job ID: [id number] MTDD
== END 2019-10-08 16:45 | disposition home or self-care (01) | DRG 220 ==
LOC: 2NO 09:58 → CCU 10-03 08:37 → 2NO 10-04 15:58
PROVIDERS: ADMIT Family Medicine; ATTEND Family Medicine
PROC: 02RF08Z Replacement of Aortic Valve with Zooplastic Tissue, Open Approach (ICD-10-PCS; principal; 2019-10-03)
PROC: 021009W Bypass Coronary Artery, One Artery from Aorta with Autologous Venous Tissue, Open Approach (ICD-10-PCS; 2019-10-03)
PROC: 06BP4ZZ Excision of Right Saphenous Vein, Percutaneous Endoscopic Approach (ICD-10-PCS; 2019-10-03)
PROC: 5A1221Z Performance of Cardiac Output, Continuous (ICD-10-PCS; 2019-10-03)
DX: I35.0 Nonrheumatic aortic (valve) stenosis (principal); N17.9 Acute kidney failure, unspecified; E87.1 Hypo-osmolality and hyponatremia; I25.10 Atherosclerotic heart disease of native coronary artery without angina pectoris; I10 Essential (primary) hypertension; E78.5 Hyperlipidemia, unspecified; E11.9 Type 2 diabetes mellitus without complications; E66.9 Obesity, unspecified; F41.9 Anxiety disorder, unspecified; K21.9 Gastro-esophageal reflux disease without esophagitis; Z96.651 Presence of right artificial knee joint; I44.7 Left bundle-branch block, unspecified; Z79.899 Other long term (current) drug therapy; Z79.4 Long term (current) use of insulin; Z91.09 Other allergy status, other than to drugs and biological substances; Z88.8 Allergy status to other drugs, medicaments and biological substances; Z85.3 Personal history of malignant neoplasm of breast; Z68.39 Body mass index [BMI] 39.0-39.9, adult; Z79.82 Long term (current) use of aspirin; Z90.49 Acquired absence of other specified parts of digestive tract; Z98.51 Tubal ligation status
CPT/HCPCS: 36415; 36416; 36430; 36600; 71045; 71275; 80048; 82570; 82805; 83036; 83930; 83935; 84300; 85007; 85025; 85027; 85610; 85730; 86850; 86900; 86901; 93005; 93010; 93798; 93880; 94640; 97139; J0171; J0690; J1100; J1642; J1644; J1815; J1885; J2250; J2405; J2440; J2550; J2704; J2720; J3010; J3370; J3475; J3480; J3490; J7620; P9045; Q0162; S0017; S0020; S0028

== ENCOUNTER 2020-02-10 13:21 | Outpatient (CLI) | payer MEDICARE ==
--- NOTE | 2020-02-10 15:18 | ULT ---
ULTRASOUND DOPPLER DUPLEX VENOUS BILATERAL LOWER EXTREMITIES: DATE: 02/10/2020 HISTORY: Bilateral lower extremity pain and swelling in 74-year-old female TECHNIQUE: Grayscale, color-flow, and spectral analysis, of major veins of bilateral lower extremities. FINDINGS: There is demonstration of blood flow with normal compressibility, of the bilateral common femoral, pr ofunda femoral, greater saphenous, femoral, popliteal, and posterior tibial, veins. There is a 2 x 1 x 4 cm hypoechoic well-circumscribed mass with no internal blood flow and slightly heterogeneous ec hogenicity in the left popliteal fossa. IMPRESSION: 1) left-sided Yadav's cyst. 2) No deep venous thrombosis of bilateral lower extremities.
--- NOTE | 2020-02-12 06:12 | OP ---
DATE OF PROCEDURE: 02/10/2020 This is a report on an arterial Doppler examination of both lower extremities. Bilateral lower extremity arterial Doppler examination was performed on 02/09. The waveforms in the bilateral femoral, popliteal, posterior tibial, and dorsalis pedis waveforms are triphasic with good peak area under the curve. The pressures in the femoral artery on the right are 181, with noncompressible tibial arteries distally, toe to brachial index is 0.39. On the left, the femoral pressure is 172 with noncompressible tibial arteries. Toe brachial index is 0.56. IMPRESSION: Probable calcified tibial arteries bilaterally with normal waveforms. Job ID: [id number]
== END 2020-02-10 13:22 | disposition home or self-care (01) ==
LOC: ULT 13:21
PROVIDERS: ATTEND Family Medicine
DX: I73.9 Peripheral vascular disease, unspecified (principal); M79.89 Other specified soft tissue disorders; M79.604 Pain in right leg; M79.605 Pain in left leg; M71.22 Synovial cyst of popliteal space [Baker], left knee
CPT/HCPCS: 93922; 93970

== ENCOUNTER 2021-04-03 11:17 | Observation (INO) | payer MEDICARE ==
[~2021-04-03 11:17] MED LIST: Iopamidol 370 76% 100 ML VIAL ONE
[2021-04-03 12:48] LABS: #Basophils 0.1 thou/uL (0.0-0.2); #Eosinphils 0.3 thou/uL (0.0-0.7); #Lymphocytes 2.9 thou/uL (1.20-3.40); #Monocytes 0.8 thou/uL (0.11-0.59); #Neutrophils 7.4 thou/uL (1.40-6.50); %Basophils 0.5 % (0.0-1.0); %Eosinophils 2.2 % (0.0-10.0); %Lymphocytes 25.7 % (21.0-51.0); %Monocytes 7.2 % (0.0-10.0); %Neutrophils 64.4 % (42.0-75.0); Hemoglobin 12.2 g/dL (12.0-16.0); Mean Corpuscular HGB CONC 33.6 g/dL (32.0-36.0); Mean Corpuscular Hemoglobin 31.2 pg (27.0-31.0); Mean Platelet Volume 7.9 fL (7.4-10.4); Platelet Count 226 thou/uL (130-400); RBC Distribution Width 13.1 % (11.5-14.5); White Blood Cell (WBC) Count 11.4 thou/uL (4.8-10.8)
[2021-04-03 13:11] LABS: ALT (SGPT) 15 U/L (8-55); AST (SGOT) 17 U/L (5-34); Albumin 3.5 g/dL (3.4-4.8); Alkaline Phosphatase 61 U/L (40-110); Anion Gap 16 mmol/L (10-20); BUN (Urea Nitrogen) 13 mg/dL (9.8-20.1); Bilirubin, Total 0.5 mg/dL (0.2-1.2); Calc. Creatinine Clearance 0 mL/min (70-130); Calcium 9.2 mg/dL (7.8-10.44); Carbon Dioxide 20 mmol/L (23-31); Chloride 101 mmol/L (98-107); Globulin 2.7 g/dL (2.4-3.5); Glucose 79 mg/dL (83-110); Lipase 21 U/L (8-78); Potassium 4.1 mmol/L (3.5-5.1); Protein, Total 6.2 g/dL (5.8-8.1); Sodium 133 mmol/L (136-145)
[2021-04-03] MEDS ORDERED: Nitrazine Tape 1 ROLL ONE (13:50)
[2021-04-03] MEDS ORDERED: Nitroglycerin 2% Ointment 1 INCH/1 GM Packet ONE (13:50)
[2021-04-03] MEDS ORDERED: Dextrose 5% in Water 1,000 ML IV PRN (15:52)
[2021-04-03] MEDS ORDERED: Dextrose 50% Abboject 50 ML SYRINGE SLOW IVP PRN (15:52)
[2021-04-03] MEDS ORDERED: HumaLOG 300 UNITS/3 ML VIAL SC PRN ×2 (15:52)
[2021-04-03] MEDS ORDERED: Sucralfate 1 GM TAB PO SCH (16:30)
[2021-04-03 16:37] LABS: Troponin I Less than 0.010 ng/mL (< 0.028)
[2021-04-03 16:41] LABS: Magnesium 1.5 mg/dL (1.6-2.6); Phosphorus 2.9 mg/dL (2.3-4.7)
[2021-04-03 19:02] LABS: Troponin I Less than 0.010 ng/mL (< 0.028)
[2021-04-03 19:31] VITALS: BMI 36.3
[2021-04-03] MEDS: Atorvastatin Calcium 10 MG TAB PO SCH (21:01)
[2021-04-03] MEDS: Anastrozole 1 MG TAB PO SCH (21:01)
[2021-04-03] MEDS: Calcium Carbonate 600 MG + Vit D TAB PO SCH (21:02)
[2021-04-03] MEDS: Enoxaparin Sodium 40 MG/0.4 ML SYRINGE SC SCH (21:02)
[2021-04-03] MEDS: Diclofenac 1% 100 GM GEL TP SCH (21:02)
[2021-04-03] MEDS: Dronedarone HCl 400 MG TAB PO SCH (21:03)
[2021-04-03] MEDS: Magnesium Oxide 400 MG TAB PO SCH (21:04)
[2021-04-03] MEDS: Topiramate 25 MG TAB PO SCH (21:05)
[2021-04-03] MEDS: Acetaminophen 325 MG TAB PO PRN (21:05)
[2021-04-03] MEDS: Melatonin 3 MG TAB PO SCH (21:05)
[2021-04-04] MEDS ORDERED: Lactated Ringer's 1,000 ML IV SCH
[2021-04-04 00:38] LABS: SARS-CoV-2 PCR by NAA Not Detected (NotDetected)
[2021-04-04] MEDS: Acetaminophen 325 MG TAB PO PRN ×2 (01:16→16:28)
[2021-04-04] MEDS ORDERED: diphenhydrAMINE 25 MG CAP PO SCH (02:15)
[2021-04-04] MEDS ORDERED: Meclizine HCl 25 MG TAB PO SCH (02:30)
[2021-04-04 03:59] LABS: #Basophils 0.1 thou/uL (0.0-0.2); #Eosinphils 0.3 thou/uL (0.0-0.7); #Lymphocytes 2.9 thou/uL (1.20-3.40); #Monocytes 0.5 thou/uL (0.11-0.59); #Neutrophils 3.8 thou/uL (1.40-6.50); %Lymphocytes 38.6 % (21.0-51.0); %Monocytes 6.9 % (0.0-10.0); %Neutrophils 49.5 % (42.0-75.0); Hemoglobin 11.4 g/dL (12.0-16.0); Mean Corpuscular HGB CONC 33.2 g/dL (32.0-36.0); Mean Corpuscular Hemoglobin 31.2 pg (27.0-31.0); Mean Corpuscular Volume 93.9 fL (78.0-98.0); Mean Platelet Volume 7.5 fL (7.4-10.4); Platelet Count 213 thou/uL (130-400); RBC Distribution Width 13.1 % (11.5-14.5); Red Blood Cell (RBC) Count 3.64 mill/uL (4.20-5.40); White Blood Cell (WBC) Count 7.6 thou/uL (4.8-10.8)
[2021-04-04 04:30] LABS: Anion Gap 13 mmol/L (10-20); BUN (Urea Nitrogen) 11 mg/dL (9.8-20.1); Calc. Creatinine Clearance 84 mL/min (70-130); Carbon Dioxide 24 mmol/L (23-31); Chloride 99 mmol/L (98-107); Glucose 84 mg/dL (83-110); Magnesium 1.6 mg/dL (1.6-2.6); Potassium 3.7 mmol/L (3.5-5.1); Sodium 132 mmol/L (136-145)
[2021-04-04] MEDS ORDERED: ADENOSINE 60 MG/20 ML VIAL ONE (09:37)
[2021-04-04] MEDS: Aspirin 81 mg Enteric Coated Tablet PO SCH (11:38)
[2021-04-04] MEDS: Diclofenac 1% 100 GM GEL TP SCH ×4 (11:39→21:44)
[2021-04-04] MEDS: Calcium Carbonate 600 MG + Vit D TAB PO SCH ×2 (11:39→21:43)
[2021-04-04] MEDS: Loratadine 10 MG TAB PO SCH (11:40)
[2021-04-04] MEDS: Dronedarone HCl 400 MG TAB PO SCH ×2 (11:40→21:44)
[2021-04-04] MEDS: Lisinopril 20 MG TAB PO SCH (11:40)
[2021-04-04] MEDS: Magnesium Oxide 400 MG TAB PO SCH ×2 (11:41→21:44)
[2021-04-04] MEDS: Multivit, Therapeutic 1 TAB PO SCH (11:41)
[2021-04-04] MEDS: Topiramate 25 MG TAB PO SCH ×2 (11:42→21:44)
[2021-04-04] MEDS: Atorvastatin Calcium 10 MG TAB PO SCH (21:43)
[2021-04-04] MEDS: Anastrozole 1 MG TAB PO SCH (21:43)
[2021-04-04] MEDS: Melatonin 3 MG TAB PO SCH (21:44)
[2021-04-04] MEDS: Enoxaparin Sodium 40 MG/0.4 ML SYRINGE SC SCH (21:44)
[2021-04-05] MEDS: Aspirin 81 mg Enteric Coated Tablet PO SCH (09:32)
[2021-04-05] MEDS: Dronedarone HCl 400 MG TAB PO SCH (09:32)
[2021-04-05] MEDS: Calcium Carbonate 600 MG + Vit D TAB PO SCH (09:32)
[2021-04-05] MEDS: Loratadine 10 MG TAB PO SCH (09:33)
[2021-04-05] MEDS: Lisinopril 20 MG TAB PO SCH (09:33)
[2021-04-05] MEDS: Multivit, Therapeutic 1 TAB PO SCH (09:33)
[2021-04-05] MEDS: Magnesium Oxide 400 MG TAB PO SCH (09:33)
[2021-04-05] MEDS: Diclofenac 1% 100 GM GEL TP SCH ×2 (09:34→12:31)
[2021-04-05] MEDS: Topiramate 25 MG TAB PO SCH (09:41)
[2021-04-05 12:22] VITALS: BP 159/67; TEMP 97.7
[2021-04-05] MEDS ORDERED: Carvedilol 25 MG TAB PO SCH (21:00)
== END 2021-04-05 14:39 | disposition home or self-care (01) ==
LOC: ERS 11:17 → ERHOLD 14:47 → 2NO 18:41
PROVIDERS: ADMIT Family Medicine; ATTEND Family Medicine
DX: R07.89 Other chest pain (principal); R79.89 Other specified abnormal findings of blood chemistry; M25.551 Pain in right hip; R94.31 Abnormal electrocardiogram [ECG] [EKG]; I10 Essential (primary) hypertension; E78.5 Hyperlipidemia, unspecified; K21.9 Gastro-esophageal reflux disease without esophagitis; M19.90 Unspecified osteoarthritis, unspecified site; M79.651 Pain in right thigh; M25.561 Pain in right knee; I44.7 Left bundle-branch block, unspecified; E11.9 Type 2 diabetes mellitus without complications; G89.29 Other chronic pain; M54.9 Dorsalgia, unspecified; N28.1 Cyst of kidney, acquired; I08.8 Other rheumatic multiple valve diseases; Z85.3 Personal history of malignant neoplasm of breast; Z79.811 Long term (current) use of aromatase inhibitors; Z79.82 Long term (current) use of aspirin; Z79.899 Other long term (current) drug therapy; Z88.1 Allergy status to other antibiotic agents; Z88.8 Allergy status to other drugs, medicaments and biological substances; Z91.048 Other nonmedicinal substance allergy status; Z95.1 Presence of aortocoronary bypass graft; Z95.2 Presence of prosthetic heart valve; Z96.651 Presence of right artificial knee joint; Z20.822 Contact with and (suspected) exposure to COVID-19
CPT/HCPCS: 71275; 78452; 80048; 82962 ×3; 83690; 83735 ×2; 83880; 84100; 84484 ×2; 85025; 93005; 93017; 93306; 96372 ×2; 99285; A9500; G0378 ×4; U0003; U0005; 36415; 36416; 80053; 84443; J0153; J1650; Q9967

== ENCOUNTER 2023-01-05 12:00 | Outpatient (CLI) | payer MEDICARE | END 2023-01-05 12:01 | disposition home or self-care (01) | LOC: BICRAD 12:00 | PROVIDERS: ATTEND Family Medicine | DX: M25.531 Pain in right wrist (principal) ==